=== PATIENT | male | born 1950 | race Caucasian/White ===

== ENCOUNTER 2024-04-21 01:22 | Outpatient (CLI) | payer MEDICARE, SELFPAY ==
--- NOTE | 2024-04-21 06:53 | DI.CT_ITS ---
Exam(s) CT ABDOMEN PELVIS W EXAM: CT ABDOMEN PELVIS W CLINICAL HISTORY: LLQ abdominal/pelvic swelling and mass,R19.04. TECHNIQUE: Imaging Protocol: Axial computed tomography images with coronal and sagittal reformatted images were created and reviewed CONTRAST MATERIAL: Intravenous: Omnipaque-350 75cc Oral: Yes. Oral contrast was also administered for bowel opacification. COMPARISON: No exams were available for comparison FINDINGS: VISUALIZED LUNG BASES: No nodules nor pleural effusions evident. ABDOMEN: There is no ascites. LIVER: There are no significant focal hepatic lesions evident. There is a small sub cm benign cysts noted. There are no dilated intrahepatic ducts. GALLBLADDER/BILIARY: No obvious gallbladder pathology. CBD diameter is upper normal. PANCREAS: No evidence of pancreatic mass nor dilatation of the pancreatic duct. SPLEEN: Spleen is not enlarged. No obvious intrasplenic lesions. Splenic and portal veins are paten t. ADRENALS: There are no significant adrenal masses. KIDNEYS:Left kidney unremarkable. There is single small 1 cm exophytic cyst off the midpole noted. No solid lesions. There is a larger cyst at the inferior pole level of the opposite-right kidney whi ch measures 3.3 x 2.3 cm.. This benign cyst does not require further workup. There is also a calcif ication in the medial cortex of the right kidney measuring 8 x 7 mm. There are no solid renal masses .. ABDOMINAL AORTA: There is an abdominal aortic EVAR graft in place. This appears patent as do both li mbs of the graft. Distal graft anastomosis at at the distal common iliac arteries level.. No anasto mosis leak evident. LYMPH NODES:There is no retroperitoneal nor paraaortic adenopathy. ABDOMINAL WALL: No evidence of significant anterior abdominal wall nor inguinal hernia. GI: There is no evidence of bowel obstruction, free air, nor abscess. There are few diverticuli in the descending-left colon without evidence of acute diverticulitis. PELVIS: There is a mechanical penile implant in place. The reservoir he is located superficially in the left iliac fossa and measures 5 by 5 by 7 cm. A wall redundancy is noted in the superior aspect of the reservoir which may be significant. There is no abnormal fluid outside of the reservoir evident. No abnormal fat streaking evident. GI: No evidence of appendicitis.No evidence of sigmoid diverticulitis. LYMPH NODES: There is no intrapelvic nor inguinal adenopathy. REPRODUCTIVE: Mildly enlarged prostate. URINARY BLADDER: There is diffuse thickening of the urinary bladder wall either related to cystitis o r under distension. OSSEOUS: Schmorl's node invagination superior endplate of L4 noted. Chronic disc space narrowing at L5-S1 level. Mild disc space narrowing at L4-5. No listhesis. No s ignificant osseous lesions. IMPRESSION: 1. With respect of the left lower quadrant, there is a 5 x 5 x 7 cm penile implant reservoir superfic ially located in the left iliac fossa. There is no surrounding fluid nor inflammatory change in the surrounding fat. There is a thin invagination of the superior aspect of this reservoir noted of ques tionable significance. 2. There are few diverticuli but no evidence of sigmoid diverticulitis. Also no evidence of appendic itis. 3. Intact appearing aortic EVAR. 4. Diffuse thickening of the urinary bladder wall noted which is either related to cystitis, under di stension, or a combination of both. Prostate mildly enlarged. RADIATION DOSE DELIVERED: 341.53mGy.cm Total DLP DATA REPOSITORY: All CT scans at this facility are submitted to the National Radiology Data Registry (NRDR) Dose Index Registry (DIR) with the [employer] ([employer]). RADIATION OPTIMIZATION: All CT scans at this facility use at least one of these dose optimization te chniques: automated exposure control; mA and/or kV adjustment per patient size (includes targeted exa ms where dose is matched to clinical indication); or iterative reconstruction.
[2024-04-21] MEDS: Barium Sulfate 2% W/V-Creamy Vanilla Smoothie 450 ML BTL PO ×2 (08:36→08:37)
[2024-04-21 08:49] LABS: CREATININE 1.5 mg/dL (0.70-1.30); Estimated GFR 48.55 (mL/min/1.73m2)
[2024-04-21] MEDS: Omnipaque 350 MG/ML 100 ML BTL 75 ML IJ (10:54)
[2024-04-21] MEDS: Normal Saline - Diluent 50 ML VIAL IJ (10:55)
== END 2024-04-21 01:42 ==
PROVIDERS: PCP Nurse Practitioner Family; Visit Provider Physician Assistant
DX: R19.8 Other specified symptoms and signs involving the digestive system and abdomen (principal); R19.04 Left lower quadrant abdominal swelling, mass and lump
CPT/HCPCS: 74177; 82565; J3490